=== PATIENT | male | born 1975 | race Caucasian/White ===

== ENCOUNTER 2018-12-15 08:52 | Emergency (ER) | payer OTHER ==
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
[2018-12-15] MEDS ORDERED: Ketorolac INJ* 30 MG/ML 1 ML VIAL IM ONE (10:26)
[2018-12-15 11:09] VITALS: BP 146/99
== END 2018-12-15 11:15 | disposition home or self-care (01) ==
LOC: ED 08:52
DX: M54.2 Cervicalgia (principal); M54.9 Dorsalgia, unspecified; M25.512 Pain in left shoulder; M25.552 Pain in left hip; V23.4XXA Motorcycle driver injured in collision with car, pick-up truck or van in traffic accident, initial encounter; M16.12 Unilateral primary osteoarthritis, left hip; M43.17 Spondylolisthesis, lumbosacral region; M47.816 Spondylosis without myelopathy or radiculopathy, lumbar region; M51.36 Other intervertebral disc degeneration, lumbar region; M47.812 Spondylosis without myelopathy or radiculopathy, cervical region; Z88.0 Allergy status to penicillin
CPT/HCPCS: 72125; 72128; 72131; 96372; 99283; J1885